=== PATIENT | male | born 1975 | race Caucasian/White ===

== ENCOUNTER 2018-03-04 13:39 | Emergency (ER) | payer OTHER ==
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
[2018-03-04] MEDS ORDERED: PERCOCET 5-3251 EACH PO (17:45)
[2018-03-04] MEDS ORDERED: CYCLOBENZAPRINE10 M1 PO (17:45)
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
== END 2018-03-04 18:17 ==
LOC: ERH 13:39
DX: M53.3 Sacrococcygeal disorders, not elsewhere classified (principal)
CPT/HCPCS: 74176

== ENCOUNTER 2018-03-18 21:31 | Emergency (ER) | payer OTHER ==
[~2018-03-18] VITALS: Ht 177.8 cm; Wt 108.4 kg
[~2018-03-18 21:31] MED LIST: CYCLOBENZAPRINE10 M1 PO; PERCOCET 5-3251 EACH PO
--- NOTE | 2018-03-18 23:42 | RADIOLOGY REPORT ---
EXAMINATION: XR FEMUR, RIGHT CLINICAL INFORMATION: Large hematoma to the right lateral thigh. COMPARISON: None TECHNIQUE: AP and lateral views of the right femur were obtained. FINDINGS: There is a corticated osseous density adjacent to the lateral superior margin acetabulum measuring 1 cm. This is chronic. At the knee in the anterior soft tissues superficial to the patellar tendon is a smoothly marginated 9 mm calcification. There is no acute fracture. There is no dislocation. The hip and the knee joint spaces are maintained. IMPRESSION: No acute abnormality of the femur.
--- NOTE | 2018-03-19 00:13 | ED MVC/FALL/TRAUMA COMPLAINT ---
History of Present Illness General Chief Complaint: General Adult Stated Complaint: PT HAS A HEMATOMA ON THE RT LEG Source: patient Exam Limitations: no limitations Vital Signs & Intake/Output Vital Signs & Intake/Output Vital Signs Date Time Temp Pulse Resp B/P B/P Pulse O2 O2 Flow FiO2 Mean Ox Delivery Rate 03/19 0017 96.5 94 18 116/81 99 Room Air 03/18 2254 Room Air 03/18 2145 96.2 96 18 111/77 98 Room Air ED Intake and Output 03/19 0000 03/18 1200 Intake Total Output Total Balance Patient 239 lb Weight Weight Reported by Patient Measurement Method Allergies Coded Allergies: NSAIDS (Non-Steroidal Anti-Inflamma (Intermediate, GI DISTRESS 03/04/18) Reconcile Medications Cyclobenzaprine HCl 10 MG TABLET 1 TAB PO QPM PRN PAIN Oxycodone HCl/Acetaminophen (Percocet 5-325 MG Tablet) 5 MG-325 MG TABLET 1 TAB PO BID PRN PAIN Triage Note: PT FROM HOME C/O OF LEFT UPPER THIGH HEMATOMA THAT FORMED TODAY AFTER SUBSTAINING A FALL INBETWEEN TWO DECK BOARDS. PT STATES LAST TETANUS SHOT WAS TODAY WELL FLU. PTS VSS. PT IS AMBULATORY WITH SLOW GAIT/LIMP. PT REFUSING WHEELCHAIR AT THIS TIME. PT HAS HX OF DVT IN RIGHT CALF IN 2009. Triage Nurses Notes Reviewed? yes Onset: Abrupt Duration: day(s): (1), constant, continues in ED Timing: single episode today Severity: mild, moderate Severity Numbers: 6 Injuries/Fall Location: lower extremity Method of Injury: fall Loss of Consciousness: no loss of consciousness No Modifying Factors: none HPI: 42-year-old male past medical history of peptic ulcer disease and provoked DVT in 2009 after knee surgery not currently on anticoagulation presents for evaluation of pain swelling and bruising to his right lateral thigh. Patient reports he was working on his deck removing deck planks when he fell through 1 of the removed planks hitting his left thigh. Denies any head strike or loss of consciousness no other injuries. He reports pain swelling and bruising to the lateral aspect of the right thigh. Pain is worse with movement but he is able to walk and bear weight. Denies any hip or knee pain. No other injuries he is not taking any medicine for the pain. Past History Travel History Traveled to [place] past 21 day No Medical History Any Pertinent Medical History? see below for history Gastrointestinal: GI ULCER Surgical History Surgical History: non-contributory Psychosocial History What is your primary language Japanese Tobacco Use: Never used Family History Hx Contributory? No Review of Systems Review of Systems Constitutional: Reports: no symptoms. Eyes: Reports: no symptoms. Ears, Nose, Throat, Mouth: Reports: no symptoms. Respiratory: Reports: no symptoms. Cardiovascular: Reports: no symptoms. Gastrointestinal/Abdominal: Reports: no symptoms. Genitourinary: Reports: no symptoms. Musculoskeletal: Reports: see HPI, muscle pain, muscle stiffness. Skin: Reports: see HPI (BRUISING). Neurological/Psychological: Reports: no symptoms. All Other Systems: Reviewed and Negative Physical Exam Physical Exam General Appearance: well developed/nourished, no apparent distress, alert, awake Head: atraumatic, normal appearance Eyes: Bilateral: normal appearance, EOMI. Ears, Nose, Throat, Mouth: hearing grossly normal Neck: normal inspection, supple, full range of motion Respiratory: no respiratory distress Peripheral Pulses: 2+ tibialis posterior (R), 2+ tibialis posterior (L), 2+ dorsalis pedis (R), 2+ dorsalis pedis (L) Gastrointestinal: soft, non-tender Back: normal inspection, normal range of motion, no vertebral tenderness Extremities: LARGE CIRCULAR HEMATOMA LOCATED ON THE RIGHT LATERAL THIGH, IT MEASURE ABOUT 9 INCHES IN DIAMETER. NO ERYTHEMA OR ABRASIONS. NO DISCHARGE. NO LYNN PIOINT TENDERNESS. NO INDURATION. FULL ROM OF THE KNEE AND HIP ARE AINTACT. N/V SUPPLY INTACT TO THE RT LOWER EXTREMITY. Neurologic/Psych: no motor/sensory deficits, awake, alert, oriented x 3, normal gait (LIMPING ON RT), normal mood/affect Skin: intact, normal color, warm/dry Core Measures ACS in differential dx? No CVA/TIA Diagnosis No Sepsis Present: No Sepsis Focused Exam Completed? No Progress Differential Diagnosis: FRACTURE CONTUSION SPRAIN Plan of Care: Patient is here for evaluation after a fall. He has a large hematoma to the lateral aspect of the right thigh. He has no bony point tenderness. Full range of motion of the hip and knee are intact. X-rays of the femur were obtained and are negative for fracture. Patient was advised rest ice elevation compression. An Maxim wrap was applied. Tylenol as needed for pain. Follow-up with the primary care doctor in a few days for recheck. Patient is concerned about DVT because of his previous history. He was given an outpatient requisition to complete an ultrasound tomorrow. Discussed return precautions in detail including signs of infection worsening bleeding. Return immediately with spreading redness worsening swelling spreading bruising or any other concerns. Patient agrees the plan he declines any pain medication. Diagnostic Imaging: Viewed by Me: Radiology Read. Discussed w/RAD: Radiology Read. Radiology Impression: PATIENT: ZAHIRA JEFFERSON PRESENT AGE: 42 PATIENT ACCOUNT NO: [id number] : 77 LOCATION: [facility] ORDERING PHYSICIAN: Richie YAP SERVICE DATE: 03/18/18 EXAM TYPE: RAD - XRY-FEMUR, 2 VIEWS RIGHT EXAMINATION: XR FEMUR, RIGHT CLINICAL INFORMATION: Large hematoma to the right lateral thigh. COMPARISON: None TECHNIQUE: AP and lateral views of the right femur were obtained. FINDINGS: There is a corticated osseous density adjacent to the lateral superior margin acetabulum measuring 1 cm. This is chronic. At the knee in the anterior soft tissues superficial to the patellar tendon is a smoothly marginated 9 mm calcification. There is no acute fracture. There is no dislocation. The hip and the knee joint spaces are maintained. IMPRESSION: No acute abnormality of the femur. DICTATED BY: Rubén Ann MD DATE/TIME DICTATED:03/18/182335 SPECIAL SERVICES DIRECTOR:JEVON DATE/TIME TRANSCRIBED:03/18/182335 CONFIDENTIAL, DO NOT COPY WITHOUT APPROPRIATE AUTHORIZATION. <Electronically signed in Other Vendor System> Departure Departure Disposition: HOME OR SELF CARE Condition: Stable Clinical Impression Primary Impression: Hematoma Referrals: Hernando VAZQUEZ,Giacomo Larios (PCP/Family) Additional Instructions: Rest, avoid excessive walking and weightbearing. Apply ice for 15-20 minutes every couple hours. Wear Maxim wrap. Tylenol thousand milligrams every 6 hours as needed for pain. Monitor symptoms closely. If you notice worsening pain worsening swelling spreading redness heat fever chest pain shortness of breath or any other concerns return immediately. YOU should otherwise follow-up with your primary care doctor for recheck in a few days. Complete outpatient ultrasound tomorrow. Departure Forms: Customer Survey General Discharge Information
[2018-03-19 00:17] VITALS: BP 116/81
== END 2018-03-19 00:18 ==
LOC: ERH 21:31
DX: S70.11XA Contusion of right thigh, initial encounter (principal); M79.89 Other specified soft tissue disorders; M79.651 Pain in right thigh; W13.3XXA Fall through floor, initial encounter; Y93.H9 Activity, other involving exterior property and land maintenance, building and construction; Y92.009 Unspecified place in unspecified non-institutional (private) residence as the place of occurrence of the external cause
CPT/HCPCS: 73552